=== PATIENT | male | born 2000 | race Caucasian/White ===

== ENCOUNTER → 2025-01-08 | Outpatient (REF) | payer OTHER ==
[2025-01-08 16:03] LABS: SEMEN APPEARANCE OPAQUE (OPAQUE); SEMEN VISCOSITY LIQUID (LIQUID); SEMEN VOLUME 4.0 ml (2.0-5.0)
[2025-01-08 16:04] LABS: SPERM CONCENTRATION 22.9 M/ml (>=15.0); WBC CONCENTRATION >1 M/ml (<=1 M/ml)
[2025-01-08 16:05] LABS: TOTAL PROGRESSIVE SPERM 40.6 M/Ejac.
== END ==
LOC: M LAB REF 15:39
PROVIDERS: ATTEND Nurse Practitioner Family
DX: Z31.41 Encounter for fertility testing (principal)